=== PATIENT | female | born 1965 | race African-American/Black ===

== ENCOUNTER 2018-07-14 14:45 | Emergency (ER) | payer SELFPAY ==
[~2018-07-14] VITALS: Ht 160 cm; Wt 100.0 kg
[2018-07-14] MEDS ORDERED: HYDR25TA PO (15:08)
[2018-07-14] MEDS ORDERED: FLUO-124 PO (15:08)
[2018-07-14] MEDS ORDERED: AMLO10TA80 PO (15:08)
[2018-07-14] MEDS ORDERED: METO100T16 PO (15:08)
[2018-07-14] MEDS ORDERED: LOSA50TA20 PO (15:08)
[2018-07-14] MEDS ORDERED: SODIUM CHLORIDE 0.9% 1,000 ML IV ONE (17:13)
[2018-07-14] MEDS ORDERED: DIPHENHYDRAMINE 50MG/ML VIAL IV ONE (17:15)
[2018-07-14] MEDS ORDERED: METOCLOPRAMIDE HCL 10MG/2ML VIAL IV ONE (17:15)
[2018-07-14 17:57] LABS: BASOPHILS % 0.6 % (0.0-2.0); EOSINOPHILS % 1.8 % (0.0-5.0); HEMATOCRIT. 44.6 % (36.0-48.0); HEMOGLOBIN. 15.1 g/dL (12.0-16.0); LYMPHOCYTES % 53.1 % (20.0-50.0); MEAN CORPUSCULAR HEMOGLOBIN 28.1 pg (28.0-32.0); MEAN CORPUSCULAR VOLUME 83.1 fL (81.0-99.0); MEAN PLATELET VOLUME 9.2 fl (7.4-10.4); NEUTROPHILS % 31.5 % (40.0-76.0); PLATELET 201 x1000/uL (130-400); RED BLOOD CELL COUNT 5.36 mill/uL (4.2-5.4); RED CELL DISTRIBUTION WIDTH 15.2 % (11.6-14.6)
[2018-07-14 18:00] LABS: CHLORIDE 103 mEq/L (98-107)
[2018-07-14 18:04] LABS: PROTHROMBIN TIME 10.1 sec (9.1-11.1)
[2018-07-14 18:46] LABS: CLARITY URINE CLEAR (CLEAR); COLOR URINE YELLOW (YELLOW); KETONES URINE NEGATIVE (NEGATIVE); LEUKOCYTE ESTERASE URINE NEGATIVE (NEGATIVE); NITRITE URINE NEGATIVE (NEGATIVE); OCCULT BLOOD URINE NEGATIVE (NEGATIVE); PH URINE 6.5 (4.5-8.0); PROTEIN URINE NEGATIVE (NEGATIVE); SPECIFIC GRAVITY URINE 1.015 (1.005-1.030); UROBILINOGEN URINE 0.2 E.U./dL (0.2-1.0)
[2018-07-14] MEDS ORDERED: POTASSIUM CHLORIDE 20MEQ TABLET SR PO ONE (19:30)
[2018-07-14 21:00] VITALS: BP 125/65
== END 2018-07-14 21:00 | disposition home or self-care (01) ==
LOC: ER 14:45
DX: R51 Headache (principal); E87.6 Hypokalemia; I10 Essential (primary) hypertension; Z79.899 Other long term (current) drug therapy; Z90.710 Acquired absence of both cervix and uterus
CPT/HCPCS: 36415; 70450; 80053; 81003; 85025; 85610; 96361; 96374; 96375; 99284; J1200; J2765; J7030

== ENCOUNTER 2023-10-14 15:23 | Emergency (ER) | payer SELFPAY ==
[~2023-10-14] VITALS: Ht 172.7 cm; Wt 95.0 kg
[~2023-10-14 15:23] MED LIST: DILT300C35 MT; FLUO20CA39 PO; LOSA50TA41 PO; METO100T16 PO
[2023-10-14 15:43] VITALS: O2SAT 97
[2023-10-14 16:11] LABS: BASOPHILS % 0.5 % (0.0-2.0); EOSINOPHILS % 0.6 % (0.0-5.0); HEMATOCRIT. 47.6 % (36.0-48.0); HEMOGLOBIN. 15.5 g/dL (12.0-16.0); LYMPHOCYTES % 37.4 % (20.0-50.0); MEAN CORPUSCULAR HEMOGLOBIN 27.1 pg (28.0-32.0); MEAN CORPUSCULAR HGB CONC 32.5 g/dL (31.0-37.0); MEAN CORPUSCULAR VOLUME 83.2 fL (81.0-99.0); MEAN PLATELET VOLUME 9.3 fl (7.4-10.4); MONOCYTES % 10.3 % (2.0-8.0); NEUTROPHILS % 51.2 % (40.0-76.0); PLATELET 221 x1000/uL (130-400); RED BLOOD CELL COUNT 5.72 mill/uL (4.2-5.4); RED CELL DISTRIBUTION WIDTH 15.9 % (11.6-14.6); WHITE BLOOD COUNT 4.7 x1000/uL (4.5-11.0)
[2023-10-14 16:26] LABS: CHLORIDE 105 mEq/L (98-107); POTASSIUM 3.5 mEq/L (3.5-5.1); SODIUM 142 mEq/L (136-145)
[2023-10-14 16:27] LABS: CALCIUM 9.4 mg/dL (8.7-10.4); CARBON DIOXIDE 27 mEq/L (21-32)
[2023-10-14 16:32] LABS: CREATININE 0.8 mg/dL (0.6-1.0); GLUCOSE 126 mg/dL (70-105); UREA NITROGEN BLOOD 8 mg/dL (9-23)
[2023-10-14 16:39] LABS: CLARITY URINE CLEAR (CLEAR); COLOR URINE YELLOW (YELLOW); GLUCOSE URINE NEGATIVE (NEGATIVE); KETONES URINE NEGATIVE (NEGATIVE); LEUKOCYTE ESTERASE URINE NEGATIVE (NEGATIVE); NITRITE URINE NEGATIVE (NEGATIVE); OCCULT BLOOD URINE NEGATIVE (NEGATIVE); PH URINE 7.5 (4.5-8.0); PROTEIN URINE TRACE (NEGATIVE); SPECIFIC GRAVITY URINE 1.007 (1.005-1.030); UROBILINOGEN URINE 0.2 E.U./dL (0.2-1.0)
[2023-10-14 17:00] LABS: BACTERIA URINE TRACE; SQUAMOUS EPITHELIAL CELL URINE FEW /lpf (RARE/1+)
[2023-10-14 17:01] LABS: RBC URINE 0-2 /hpf (0-2); WBC URINE 0-2 /hpf (0-2)
[2023-10-14] MEDS ORDERED: BENZ100C86 MT (19:01)
[2023-10-14 19:47] VITALS: BP 190/101; PULSE 74; RESP 20; TEMP 97.8
== END 2023-10-14 19:47 | disposition home or self-care (01) ==
LOC: ER 15:23
DX: I10 Essential (primary) hypertension (principal); R05.9 Cough, unspecified; E11.9 Type 2 diabetes mellitus without complications; Z90.710 Acquired absence of both cervix and uterus
CPT/HCPCS: 36415; 71045; 80048; 81003; 85025; 99284